=== PATIENT | female | born 1955 | race Caucasian/White ===

== ENCOUNTER → 2018-03-18 07:20 | Outpatient (CLI) | payer OTHER, SELFPAY ==
--- NOTE | 2018-03-18 07:20 | DT_ITS ---
This patient was seen during an EMR downtime March 18, 2018 - March 25, 2018. This patient may have a combination of paper and electronic documentation or all paper documentation. All documentation is viewable within the e-chart portion of [facility] for each patient visit.
--- NOTE | 2018-03-18 07:20 | BI_ITS ---
MAMMOGRAPHY - UNILATERAL SCREENING: LEFT BREAST REASON FOR EXAM: Female, 62 years old. Routine annual screening examination (unilateral). PERTINENT HISTORY: P/H AGE 43, MOTHER AGE 62 RT MASTECTOMY 2000, LT NEEDE BX 3 + YRS AGO TOMOXIFEN [id number] TECHNIQUE: Digital unilateral breast leisa (3D mammographic acquisition) in the CC and MLO projections. 2-D mediolateral oblique (MLO) and craniocaudad (CC) views of both breasts were obtained. CAD: Full Field Digital Mammography with Computer Added Detection was performed. COMPARISON: 03/19/17 and 03/31/2016 FINDINGS: Breast Composition: The breasts are heterogeneously dense, which may obscure small masses. There are no dominant masses or suspicious calcifications. No other significant abnormalities are identified. BI/UNILAT LT SCRN W/CAD IMPRESSION: Stable unilateral screening mammogram. Yearly follow-up mammogram recommended. (A) ASSESSMENT CATEGORY: BIRADS Category 2: Benign. A letter regarding these results will be sent to the patient by the facility within 30 days. Approximately 10% of breast cancers are not detected by mammography. A normal mammogram should not delay biopsy of a clinically suspicious abnormality. [id number] Electronically Signed: Elsa Hernández MD at 12:44 EDT Tel , Service support ,
== END ==
PROVIDERS: Family Provider Family Medicine; PCP Family Medicine; Visit Provider Surgery
DX: Z12.31 Encounter for screening mammogram for malignant neoplasm of breast (principal); Z85.3 Personal history of malignant neoplasm of breast
CPT/HCPCS: 77061; 77067; G0279

== ENCOUNTER → 2018-07-08 16:45 | Outpatient (CLI) | payer OTHER, SELFPAY ==
[2018-07-08 17:34] LABS: Absolute Lymphocyte Count 1.67 X10^3/ul (0.83-4.51); Absolute Neutrophil Count 2.1 X10^3/uL (2.0-7.7); Basophil# 0.01 X10^3/uL; Basophil% 0.2 % (0-1); Eosinophil# 0.05 X10^3/uL; Eosinophils% 1.2 % (0-5); Hematocrit 40.4 % (37-47); Hemoglobin 13.5 g/dl (12.0-15.0); Lymphocyte # 1.67 X10^3/ul (4.0); Lymphocyte % 40.1 % (19-41); Mean Corp Hgb Conc 33.4 g/gl (32-36); Mean Corpuscular Hgb 29.1 pg (27.0-32.0); Mean Corpuscular Volume 87.1 fL (81-99); Mean Platelet Vol. 9.7 fl (6.2-12.0); Monocyte# 0.35 X10^3/uL; Monocyte% 8.4 % (0-10); Neutrophil # 2.07 X10^3/uL (2.7-7.7); Neutrophil % 49.9 % (47-70); POSITIVE COUNT NO; POSITIVE DIFFERENTIAL NO; POSITIVE MORPHOLOGY NO; Platelet Count 187 K/mm3 (150-450); RBC Distribution Width CV 12.6 % (11.6-14.6); RBC Distribution Width SD 39.7 fl (35.1-43.9); Red Blood Count 4.64 M/mm3 (4.2-5.4); White Blood Count 4.2 K/mm3 (4.4-11.0)
[2018-07-08 17:48] LABS: BUN 18 mg/dL (7-18); BUN/Creat Ratio 17.6 RATIO (10-20); Calcium,Total 9.2 mg/dL (8.5-10.1); Chloride 101 mmol/L (98-107); Cholesterol 173 mg/dL (200); Creatinine, Serum 1.02 mg/dL (0.55-1.02); EST Glomerular Filtration Rate 59 mL/min (>60); Est Glom Filt Rate - Afr Amer 71 mL/min (>60); Glucose 86 mg/dL (74-106); Potassium 3.9 mmol/L (3.5-5.1); Sodium Level 139 mmol/L (136-145); Triglycerides 73 mg/dL
[2018-07-08 17:49] LABS: Anion Gap 8 (5-15); High Density Lipoprotein 82 mg/dL; Very Low Density Lipoprotein 15 mg/dL (5-40)
== END ==
PROVIDERS: Family Provider Family Medicine; PCP Family Medicine; Visit Provider Family Medicine
DX: I10 Essential (primary) hypertension (principal); K21.9 Gastro-esophageal reflux disease without esophagitis
CPT/HCPCS: 36415; 80048; 80061; 85025

== ENCOUNTER → 2019-01-04 08:01 | Outpatient (CLI) | payer OTHER, SELFPAY ==
[2019-01-04 09:20] LABS: Anion Gap 6 (5-15); BUN 24 mg/dL (7-18); BUN/Creat Ratio 27.2 RATIO (10-20); Calcium,Total 8.9 mg/dL (8.5-10.1); Chloride 106 mmol/L (98-107); Cholesterol 171 mg/dL (200); Creatinine, Serum 0.88 mg/dL (0.55-1.02); EST Glomerular Filtration Rate 69 mL/min (>60); Est Glom Filt Rate - Afr Amer 84 mL/min (>60); Glucose 90 mg/dL (74-106); High Density Lipoprotein 82 mg/dL; Potassium 4.2 mmol/L (3.5-5.1); Sodium Level 143 mmol/L (136-145); Triglycerides 57 mg/dL; Very Low Density Lipoprotein 11 mg/dL (5-40)
== END ==
PROVIDERS: Family Provider Family Medicine; PCP Family Medicine; Referring Provider Nurse Practitioner Adult Health; Visit Provider Nurse Practitioner Adult Health
DX: I10 Essential (primary) hypertension (principal); E78.5 Hyperlipidemia, unspecified
CPT/HCPCS: 36415; 80048; 80061

== ENCOUNTER → 2019-03-15 | Outpatient (CLI) | payer OTHER, SELFPAY ==
--- NOTE | 2019-03-15 07:32 | BI_ITS ---
MAMMOGRAPHY - BILATERAL SCREENING REASON FOR EXAM: Female, 63 years old. Routine annual screening examination. PERTINENT HISTORY: Personal history of breast cancer. Prior right mastectomy. Mother with breast cancer. Remote left stereotactic breast biopsy. TECHNIQUE: Digital bilateral breast cristina (3D mammographic acquisition) in the CC and MLO projections. 2-D mediolateral oblique (MLO) and craniocaudad (CC) views of both breasts were obtained. CAD: Full Field Digital Mammography with Computer Added Detection was performed. COMPARISON: Comparison is made with prior study dated March 18, 2018 and March 19, 2017. FINDINGS: Breast Composition: The breasts are heterogeneously dense, which may obscure small masses. There are no dominant masses or suspicious calcifications. A tissue clip marker is seen in the deep axillary region of the left breast. No other significant abnormalities are identified. There has been no significant change since the prior study. BI/SCREEN MAMM (CAD) W/CRISTINA UNI L IMPRESSION: Stable bilateral screening mammogram. Yearly follow-up mammogram recommended. (A) ASSESSMENT CATEGORY: BIRADS Category 2: Benign. A letter regarding these results will be sent to the patient by the facility within 30 days. Approximately 10% of breast cancers are not detected by mammography. A normal mammogram should not delay biopsy of a clinically suspicious abnormality. [id number] Electronically Signed: Petr Westbrook, at 9:20 EDT , Service support ,
== END | disposition home or self-care (01) ==
LOC: OPBI 07:30
PROVIDERS: Family Provider Family Medicine; PCP Family Medicine; Referring Provider Surgery; Visit Provider Surgery
DX: Z12.31 Encounter for screening mammogram for malignant neoplasm of breast (principal)
CPT/HCPCS: 77061; 77067; G0279

== ENCOUNTER → 2019-07-07 | Outpatient (CLI) | payer OTHER, SELFPAY ==
[2019-03-21 08:03] VITALS: BMI 19.3
[2019-07-07 18:17] LABS: Anion Gap 4 (5-15); BUN 22 mg/dL (7-18); BUN/Creat Ratio 22.8 RATIO (10-20); Chloride 102 mmol/L (98-107); Creatinine, Serum 0.96 mg/dL (0.55-1.02); EST Glomerular Filtration Rate 62 mL/min (>60); Est Glom Filt Rate - Afr Amer 75 mL/min (>60); Glucose 88 mg/dL (74-106); Potassium 3.5 mmol/L (3.5-5.1); Sodium Level 137 mmol/L (136-145)
== END | disposition home or self-care (01) ==
LOC: MFPLAB 16:28
PROVIDERS: Family Provider Family Medicine; PCP Family Medicine; Visit Provider Family Medicine
DX: I10 Essential (primary) hypertension (principal)
CPT/HCPCS: 36415; 80048

== ENCOUNTER → 2019-09-25 16:11 | Outpatient (CLI) | payer OTHER, SELFPAY ==
[2019-03-21 08:03] VITALS: BMI 19.3
--- NOTE | 2019-09-25 16:40 | RAD_ITS ---
STUDY: X-RAY CHEST REASON FOR EXAM: Female, 64 years old. Pre-op workup TECHNIQUE: PA and lateral views of the chest. COMPARISON: None. FINDINGS: The lungs are clear but hyper expanded. There is pectus excavatum. There is no demonstrated pleural abnormality. Normal size heart. Normal mediastinum and matthew. Normal visualized pulmonary arteries. There is atherosclerotic calcification of the aortic arch with tortuosity. Normal visualized thoracic spine. Normal visualized ribs, clavicles, and shoulders. There is no demonstrated abnormality of the visualized soft tissue structures of the upper abdomen. RAD/Chest PA and Lateral IMPRESSION: No airspace consolidation or pleural effusion. Electronically Signed: Rodrigo Millan MD ([place]) at 9:05 EST , Service support ,
[2019-09-25 17:10] LABS: Absolute Lymphocyte Count 1.63 X10^3/uL (0.83-4.51); Absolute Neutrophil Count 2.3 X10^3/uL (2.0-7.7); Basophil# 0.02 X10^3/uL; Basophil% 0.4 % (0-1); Eosinophil# 0.11 X10^3/uL; Eosinophils% 2.4 % (0-5); Hematocrit 43.4 % (37-47); Hemoglobin 14.1 g/dL (12.0-15.0); Lymphocyte # 1.63 X10^3/ul (4.0); Lymphocyte % 35.7 % (19-41); Mean Corp Hgb Conc 32.5 g/dL (32-36); Mean Corpuscular Hgb 28.6 pg (27.0-32.0); Mean Platelet Vol. 9.5 fl (6.2-12.0); Monocyte# 0.46 X10^3/uL; Monocyte% 10.1 % (0-10); NRBC Flagged by Analyzer 0 % (0-5); Neutrophil # 2.33 X10^3/uL (2.7-7.7); Neutrophil % 51.2 % (47-70); Platelet Count 214 K/mm3 (150-450); RBC Distribution Width CV 12.6 % (11.6-14.6); RBC Distribution Width SD 40.7 fl (35.1-43.9); Red Blood Count 4.93 M/mm3 (4.2-5.4); White Blood Count 4.6 K/mm3 (4.4-11.0)
[2019-09-25 17:31] LABS: Anion Gap 5 (5-15); BUN 19 mg/dL (7-18); BUN/Creat Ratio 18.8 RATIO (10-20); Calcium,Total 9.2 mg/dL (8.5-10.1); Chloride 104 mmol/L (98-107); Creatinine, Serum 1.01 mg/dL (0.55-1.02); EST Glomerular Filtration Rate 59 mL/min (>60); Est Glom Filt Rate - Afr Amer 71 mL/min (>60); Glucose 90 mg/dL (74-106); Potassium 4.2 mmol/L (3.5-5.1); Sodium Level 140 mmol/L (136-145)
== END ==
PROVIDERS: Family Provider Family Medicine; PCP Family Medicine; Referring Provider Physician Assistant; Visit Provider Physician Assistant
DX: Z01.818 Encounter for other preprocedural examination (principal)
CPT/HCPCS: 36415; 71046; 80048; 85025

== ENCOUNTER → 2019-10-03 16:24 | Outpatient (CLI) | payer OTHER, SELFPAY ==
[2019-03-21 08:03] VITALS: BMI 19.3
--- NOTE | 2019-10-03 16:31 | EKG12_ITS ---
Test Reason : PRE OP Blood Pressure : / mmHG Vent. Rate : 092 BPM Atrial Rate : 092 BPM P-R Int : 156 ms QRS Dur : 074 ms QT Int : 348 ms P-R-T Axes : 075 -08 065 degrees QTc Int : 430 ms Normal sinus rhythm Possible Left atrial enlargement Borderline ECG When compared with ECG of 31-OCT-2016 17:28, No significant change was found Confirmed by SUSANA MARTIN, HAWK ([id number]), department editor KARUNA SCHMIDT ([id number]) on 10/06/2019 1:08:33 PM Referred By: Wolf Jay Confirmed By:HAWK MEZA MD
== END ==
LOC: LAB 16:25 → CVS 16:30
PROVIDERS: Family Provider Family Medicine; PCP Family Medicine; Referring Provider Physician Assistant; Visit Provider Physician Assistant
DX: Z01.818 Encounter for other preprocedural examination (principal)
CPT/HCPCS: 93005

== ENCOUNTER → 2020-03-11 | Outpatient (CLI) | payer OTHER, SELFPAY ==
[2019-03-21 08:03] VITALS: BMI 19.3
--- NOTE | 2020-03-11 07:26 | BI_ITS ---
MAMMOGRAPHY - UNILATERAL SCREENING: LEFT BREAST REASON FOR EXAM: Female, 64 years old. Routine annual screening examination (unilateral). PERTINENT HISTORY: Personal history of breast cancer. Prior right mastectomy. Mother with breast cancer. TECHNIQUE: Digital unilateral breast cristina (3D mammographic acquisition) in the CC and MLO projections. 2-D mediolateral oblique (MLO) and craniocaudad (CC) views of both breasts were obtained. CAD: Full Field Digital Mammography with Computer Added Detection was performed. COMPARISON: Comparison is made with prior examination dated March 15, 2019 and March 18, 2018. FINDINGS: Breast Composition: The breasts are heterogeneously dense, which may obscure small masses. There are no dominant masses or suspicious calcifications. There is a 4.7 mm x 5.1 mm well-defined nodule in the axillary region of the left breast. Correlation with ultrasound is recommended for further evaluation. A tissue clip marker is once again seen in the deep axillary region of the left breast. No other significant abnormalities are identified. BI/SCREEN MAMM (CAD) W/CRISTINA UNI L IMPRESSION: 4.7 mm x 5.1 mm well-defined nodule in the axillary region of the left breast as described. Correlation with ultrasound is recommended. ASSESSMENT CATEGORY: BIRADS Category 0: Incomplete. Need additional imaging evaluation. A letter regarding these results will be sent to the patient by the facility within 30 days. Approximately 10% of breast cancers are not detected by mammography. A normal mammogram should not delay biopsy of a clinically suspicious abnormality. [id number] Electronically Signed: Petr Westbrook, at 8:23 EDT , Service support ,
--- NOTE | 2020-03-11 13:57 | US_ITS ---
STUDY: ULTRASOUND BREAST - LEFT REASON FOR EXAM: Female, 64 years old. Left axillary nodule. TECHNIQUE: Axial and longitudinal images of the LEFT breast were performed with a high resolution ultrasound transducer. # OF IMAGES: 17 COMPARISON: Comparison is made with prior mammogram done earlier in the day. FINDINGS: LEFT Breast: 2 benign-appearing lymph nodes are seen in the axillary region of the left breast. The larger lymph node measures 1.2 cm x 0.8 cm x 0.6 cm. US/Breast Limited Unilateral IMPRESSION: 2 benign-appearing lymph nodes are seen in the axillary region of the left breast. ASSESSMENT CATEGORY: BIRADS Category 2: Benign. A letter regarding these results will be sent to the patient by the facility within 30 days. Electronically Signed: Petr Westbrook, at 15:04 EDT , Service support ,
== END | disposition home or self-care (01) ==
PROVIDERS: PCP Family Medicine; Referring Provider Surgery; Visit Provider Surgery
DX: N63.20 Unspecified lump in the left breast, unspecified quadrant (principal); Z12.31 Encounter for screening mammogram for malignant neoplasm of breast
CPT/HCPCS: 76642; 77063; 77067

== ENCOUNTER → 2020-03-12 | Outpatient (CLI) | payer OTHER, SELFPAY ==
[2019-03-21 08:03] VITALS: BMI 19.3
[2020-03-12 15:36] LABS: AST(SGOT) 33 U/L (15-37); Alanine Aminotransfer ALT/SGPT 41 U/L (13-56); Anion Gap 6 (5-15); BUN 26 mg/dL (7-18); BUN/Creat Ratio 24.8 RATIO (10-20); Calcium,Total 9.1 mg/dL (8.5-10.1); Chloride 105 mmol/L (98-107); Cholesterol 179 mg/dL (200); Creatinine, Serum 1.05 mg/dL (0.55-1.02); EST Glomerular Filtration Rate 56 mL/min (>60); Est Glom Filt Rate - Afr Amer 68 mL/min (>60); Glucose 92 mg/dL (74-106); High Density Lipoprotein 93 mg/dL; Sodium Level 140 mmol/L (136-145); Triglycerides 60 mg/dL; Very Low Density Lipoprotein 12 mg/dL (5-40)
== END | disposition home or self-care (01) ==
LOC: MFPLAB 14:22
PROVIDERS: PCP Family Medicine; Referring Provider Family Medicine; Visit Provider Family Medicine
DX: I10 Essential (primary) hypertension (principal); E78.5 Hyperlipidemia, unspecified
CPT/HCPCS: 36415; 80048; 80061; 84450; 84460

== ENCOUNTER → 2020-03-17 | Outpatient (CLI) | payer OTHER, SELFPAY ==
[2019-03-21 08:03] VITALS: BMI 19.3
[2020-03-19 13:03] LABS: HPV APTIMA, High Risk Negative (Negative)
== END | disposition home or self-care (01) ==
LOC: LABSPEC 13:24
PROVIDERS: PCP Family Medicine; Visit Provider Obstetrics & Gynecology
DX: Z12.4 Encounter for screening for malignant neoplasm of cervix (principal)
CPT/HCPCS: 87624; 88175; G0145

== ENCOUNTER → 2020-09-07 16:04 | Outpatient (CLI) | payer OTHER, SELFPAY ==
[2020-03-19 07:57] VITALS: BMI 19.3
[2020-09-07 17:50] LABS: Absolute Lymphocyte Count 1.62 X10^3/uL (0.83-4.51); Absolute Neutrophil Count 2.5 X10^3/uL (2.0-7.7); Basophil# 0.02 X10^3/uL; Basophil% 0.4 % (0-1); Eosinophil# 0.18 X10^3/uL; Eosinophils% 3.8 % (0-5); Hematocrit 43.8 % (37-47); Lymphocyte # 1.62 X10^3/ul (4.0); Mean Corpuscular Hgb 28.6 pg (27.0-32.0); Mean Corpuscular Volume 89.4 fL (81-99); Mean Platelet Vol. 9.6 fl (6.2-12.0); Monocyte# 0.48 X10^3/uL; Monocyte% 10.1 % (0-10); NRBC Flagged by Analyzer 0 % (0-5); Neutrophil # 2.46 X10^3/uL (2.7-7.7); Neutrophil % 51.5 % (47-70); Platelet Count 218 K/mm3 (150-450); RBC Distribution Width CV 13.2 % (11.6-14.6); RBC Distribution Width SD 43.8 fl (35.1-43.9); White Blood Count 4.8 K/mm3 (4.4-11.0)
[2020-09-07 18:22] LABS: Anion Gap 6 (5-15); BUN 24 mg/dL (7-18); BUN/Creat Ratio 25.8 RATIO (10-20); Calcium,Total 9.4 mg/dL (8.5-10.1); Chloride 105 mmol/L (98-107); Creatinine, Serum 0.93 mg/dL (0.55-1.02); EST Glomerular Filtration Rate 65 mL/min (>60); Est Glom Filt Rate - Afr Amer 78 mL/min (>60); Glucose 83 mg/dL (74-106); Potassium 3.8 mmol/L (3.5-5.1); Sodium Level 140 mmol/L (136-145)
== END ==
PROVIDERS: PCP Family Medicine; Referring Provider Family Medicine; Visit Provider Family Medicine
DX: I10 Essential (primary) hypertension (principal); C50.919 Malignant neoplasm of unspecified site of unspecified female breast
CPT/HCPCS: 36415; 80048; 85025

== ENCOUNTER → 2021-03-17 08:58 | Outpatient (CLI) | payer OTHER, SELFPAY ==
[2020-03-19 07:57] VITALS: BMI 19.3
[2021-03-17 10:44] LABS: AST(SGOT) 29 U/L (15-37); Alanine Aminotransfer ALT/SGPT 37 U/L (13-56); Anion Gap 5 (5-15); BUN 23 mg/dL (7-18); BUN/Creat Ratio 23.4 RATIO (10-20); Calcium,Total 9.1 mg/dL (8.5-10.1); Chloride 105 mmol/L (98-107); Cholesterol 172 mg/dL (200); Creatinine, Serum 0.98 mg/dL (0.55-1.02); EST Glomerular Filtration Rate 61 mL/min (>60); Est Glom Filt Rate - Afr Amer 73 mL/min (>60); Glucose 100 mg/dL (74-106); High Density Lipoprotein 86 mg/dL; Potassium 4.3 mmol/L (3.5-5.1); Sodium Level 140 mmol/L (136-145); Triglycerides 50 mg/dL; Very Low Density Lipoprotein 10 mg/dL (5-40)
== END ==
PROVIDERS: PCP Family Medicine; Referring Provider Family Medicine; Visit Provider Family Medicine
DX: I10 Essential (primary) hypertension (principal); E78.5 Hyperlipidemia, unspecified
CPT/HCPCS: 36415; 80048; 80061; 84450; 84460

== ENCOUNTER 2022-03-01 16:11 | Outpatient (CLI) | payer OTHER, SELFPAY ==
[2022-03-01 18:51] LABS: Anion Gap 5 (5-15); BUN 25 mg/dL (7-18); BUN/Creat Ratio 25.4 RATIO (10-20); Calcium,Total 9.4 mg/dL (8.5-10.1); Chloride 103 mmol/L (98-107); Creatinine, Serum 0.98 mg/dL (0.55-1.02); EST Glomerular Filtration Rate 60 mL/min (>60); Est Glom Filt Rate - Afr Amer 73 mL/min (>60); Glucose 93 mg/dL (74-106); Potassium 3.9 mmol/L (3.5-5.1); Sodium Level 139 mmol/L (136-145)
== END 2022-03-01 23:59 | disposition home or self-care (01) ==
LOC: MFPLAB 16:14
PROVIDERS: PCP Family Medicine; Referring Provider Family Medicine; Visit Provider Family Medicine
DX: I10 Essential (primary) hypertension (principal); E78.5 Hyperlipidemia, unspecified
CPT/HCPCS: 36415; 80048

== ENCOUNTER 2022-05-13 18:44 | Emergency (ER) | payer OTHER, SELFPAY ==
[2022-05-13 18:46] VITALS: BP 190/111; PULSE 79; RESP 17; TEMP 36.8; O2SAT 98; BMI 19.5
[2022-05-13 19:01] VITALS: BP 178/113; PULSE 74; RESP 18; O2SAT 99
--- NOTE | 2022-05-13 19:08 | EDS_ITS ---
HPI History of Present Illness Chief Complaint: Laceration Informant: patient Narrative Narrative: Left hand female presents for evaluation laceration dorsal left hand. Prior to arrival. Cutting cabbage in the garden when she excellently stabbed herself. No paresthesia or loss of function. She takes baby aspirin. Unable to get the bleeding stopped therefore came here. Tetanus was last year. No other injuries. Tetanus Immunization: <5 years [facility] Medical History (Updated 05/13/22 @ 21:[address] Tyrone Long DO) Depression GERD (gastroesophageal reflux disease) High cholesterol HTN (hypertension) Home Medications aspirin 81 mg tablet,delayed release 81 mg PO DAILY 03/21/19 [History Last Taken Unknown] atorvastatin 20 mg tablet 20 mg PO DAILY 03/21/19 [History Last Taken Unknown] bupropion HCl 150 mg 24 hr tablet, extended release 300 mg PO QAM 03/21/19 [History Last Taken Unknown] hyoscyamine sulfate 0.375 mg tablet,extended release,12 hr 0.375 mg PO Q12H 03/21/19 [History Last Taken Unknown] lisinopril 10 mg-hydrochlorothiazide 12.5 mg tablet 1 tab PO DAILY 03/21/19 [History Last Taken Unknown] mirtazapine 30 mg tablet 30 mg PO DAILY 03/21/19 [History Last Taken Unknown] omeprazole 20 mg capsule,delayed release 20 mg PO DAILY 03/21/19 [History Last Taken Unknown] valacyclovir 500 mg tablet 500 mg PO DAILY 05/13/22 [History Last Taken Unknown] Allergy/AdvReac Type Severity Reaction Status Date / Time No Known Allergies Allergy Verified 05/13/22 19:08 Family History Mother Heart disease Hypertension CAD (coronary artery disease) Father Hypertension Surgical History S/P mastectomy Status post hip replacement Social History Smoking Status: Never smoker alcohol intake: never ROS ROS ED Constitutional Constitutional ED: Denies chills, fever(s) or sweats Eyes Eyes: Denies change in vision ENT ENT ED: Denies dysphagia or sore throat Cardiovascular Cardiovascular: Denies chest pain, leg edema, palpitations or racing heartbeat Respiratory/Chest Respiratory/Chest: Denies cough, dyspnea or dyspnea on exertion Gastrointestinal Gastrointestinal: Denies abdominal pain, diarrhea, nausea or vomiting Genitourinary Genitourinary ED: Denies dysuria, hematuria or urinary frequency Musculoskeletal Musculoskeletal: Denies back pain, extremity pain or neck pain Integumentary Reports wounds; Denies rash Neurologic Neurologic: Denies headache(s), paresthesias or weakness EXAM Physical Exam Const Vital Signs: 05/13/22 18:46 05/13/22 19:01 Temperature 98.3 F Temperature Source Temporal Pulse Rate 79 74 Respiratory Rate 17 18 Blood Pressure 190/111 H 178/113 H Blood Pressure Mean 137 134 Pulse Ox 98 99 Oxygen Delivery Method Room Air Room Air Positive well nourished and well developed General Appearance ED: well developed and NAD HEENT Reports moist mucous membranes normocephalic and atraumatic Eyes PERRL, EOMs intact bilaterally and conjunctivae normal General Eye ED: Yes normal appearance of both eyes Neck no lymphadenopathy and supple General: Negative for tenderness Chest Wall Chest: Negative for tenderness Resp normal respiratory effort and normal air movement Effort and Inspection: symmetric chest movement; Negative for respiratory distress Cardio regular rate, regular rhythm and no murmurs Peripheral Pulses: pulses 2+ throughout GI normal to inspection, nondistended, normoactive bowel sounds and non-tender Palpation: Negative for guarding or rebound tenderness present Back/Spine no CVA tenderness and no thoracic nor lumbar tenderness Extremity normal to inspection General Extremety ED: Negative for edema or tenderness General Extremity: Negative for edema Neuro oriented x3 and no sensory deficits noted Sensorium / Orientation: awake and alert Skin Skin Narrative: Dorsal left hand: 1 cm laceration first webspace with hematoma, there was clot of blood, there is no active bleeding. Full range of motion of the digits with extensor mechanism intact to both the thumb and the index. Sensation intact distally. MDM MDM MDM Narrative Medical decision making narrative: Laceration dorsal hand first webspace all tendons are intact. There was hemostasis on my evaluation. However discussed repair for which she agreed. Sutures placed with good hemostasis. Dressing. Wound care discussed. Sutures removed in 10 days. Blood pressure elevated on arrival improved without intervention. History of hypertension. Likely situational. Patient asymptomatic. All questions were answered. Procedure note: Verbal consent. Laceration repair. Normal sterile conditions. 2 cc lidocaine 1% used for local analgesia. Copiously flushed with normal saline. Total of 2, 4-0 nylon simple interrupted sutures placed with good approximation. Bacitracin dressing placed by myself. Patient Toller procedure well. Discharge Plan Triage Chief Complaint: Laceration ED Provider: Tyrone Long Dx/Rx/DC Orders Clinical Impression: Laceration of hand, left, Injury of hand, left, Elevated blood pressure reading in office with diagnosis of hypertension Instructions: ED Laceration, Hand: All Closures Prescriptions: No Action atorvastatin 20 mg tablet 20 mg PO DAILY bupropion HCl 150 mg tablet extended release 24 hr 300 mg PO QAM mirtazapine 30 mg tablet 30 mg PO DAILY omeprazole 20 mg capsule,delayed release(DR/EC) 20 mg PO DAILY lisinopril-hydrochlorothiazide 10-12.5 mg tablet 1 tab PO DAILY hyoscyamine sulfate 0.375 mg tablet extended release 12 hr 0.375 mg PO Q12H aspirin 81 mg tablet,delayed release (DR/EC) 81 mg PO DAILY valacyclovir 500 mg tablet 500 mg PO DAILY Primary Care Provider: Berta Plaza Referrals: Berta Plaza MD [Primary Care Provider] - 10 Day for suture removal Activity Restrictions/Additional Instructions: 2 sutures placed over the wound. Wound care as discussed. Follow-up with your doctor for suture removal. Disposition Disposition: Home, Self Care Discharge Date/Time: 05/13/22 19:57
[2022-05-13] MEDS: Lidocaine 1% (20 ml mdv) 20 ML Vial INFILT (19:12)
[2022-05-13 19:55] VITALS: BP 146/80; PULSE 78; RESP 17; O2SAT 98
== END 2022-05-13 19:57 | disposition home or self-care (01) ==
PROVIDERS: Emergency Provider Emergency Medicine; PCP Family Medicine; Visit Provider Emergency Medicine
DX: S61.412A Laceration without foreign body of left hand, initial encounter (principal); I10 Essential (primary) hypertension; E78.00 Pure hypercholesterolemia, unspecified; S69.92XA Unspecified injury of left wrist, hand and finger(s), initial encounter; F32.A Depression, unspecified; Z79.82 Long term (current) use of aspirin; Z79.899 Other long term (current) drug therapy; W26.8XXA Contact with other sharp object(s), not elsewhere classified, initial encounter; Y93.H2 Activity, gardening and landscaping
CPT/HCPCS: 12001; 99283

== ENCOUNTER → 2023-05-04 | Outpatient (CLI) | payer OTHER, SELFPAY ==
[2023-05-04 11:30] LABS: AST(SGOT) 24 U/L (15-37); Alanine Aminotransfer ALT/SGPT 32 U/L (13-56); Anion Gap 5 (5-15); BUN 23 mg/dL (7-18); BUN/Creat Ratio 25.1 RATIO (10-20); Calcium,Total 9.6 mg/dL (8.5-10.1); Chloride 107 mmol/L (98-107); Cholesterol 199 mg/dL (200); Creatinine, Serum 0.92 mg/dL (0.55-1.02); EST Glomerular Filtration Rate 65 mL/min (>60); Est Glom Filt Rate - Afr Amer 79 mL/min (>60); Glucose 95 mg/dL (74-106); High Density Lipoprotein 81 mg/dL; Potassium 4.1 mmol/L (3.5-5.1); Sodium Level 140 mmol/L (136-145); Triglycerides 55 mg/dL; Very Low Density Lipoprotein 11 mg/dL (5-40)
== END | disposition home or self-care (01) ==
LOC: MFPLAB 08:38
PROVIDERS: PCP Family Medicine; Visit Provider Family Medicine
DX: E78.5 Hyperlipidemia, unspecified (principal); I10 Essential (primary) hypertension
CPT/HCPCS: 36415; 80048; 80061; 84450; 84460

== ENCOUNTER → 2023-05-10 | Outpatient (CLI) | payer OTHER, SELFPAY ==
--- NOTE | 2023-05-10 08:24 | BD_ITS ---
STUDY: DUAL ENERGY X-RAY ABSORPTIOMETRY / DXA REASON FOR EXAM: Female, 67 years old. Z78.0 TECHNIQUE: Bone Mineral Density (BMD) measurements of lumbar spine and right forearm were obtained. COMPARISON: None. FINDINGS: Lumbar Spine (L1-L4): g/cm2 (0.910) / T-score (-1.2) / Z-score (0.6) Findings are suggestive of osteopenia with a low fracture risk. Right Forearm: g/cm2 (0.438) / T-score (-2.6) / Z-score (-1.0) BD/Dexa Bone Density Study IMPRESSION: The patient is considered osteoporotic as outlined below according to World Leonard Organization (WHO) criteria with a high fracture risk. Reference Information: The T-score is the number of standard deviations above or below the standard which is normal for young adults at their peak bone mineral density. The World Health Organization (WHO) interprets the T-scores as follows: Above -1 Normal bone density Between -1 and -2.5 Osteopenia Equal to / or below -2.5 Osteoporosis As a practical clinical guideline, osteopenia may be graded as follows: Mild -1 through -1.5 Moderate -1.6 through -2.0 Severe -2.1 through -2.4 The Z-score is the number of standard deviations above or below age-matched controls. A Z-score of less than -1.5 would be considered abnormal. References: 1. NIH Osteoporosis and Related Bone Diseases www osteo.org 2. International Society for Clinical Densitometry www iscd.org 3. National Osteoporosis Foundation www nof.org Electronically Signed: Petr Westbrook MD at 15:39 EDT ,
== END | disposition home or self-care (01) ==
LOC: OPBD 08:19
PROVIDERS: PCP Family Medicine; Referring Provider Nurse Practitioner Women's Health; Visit Provider Nurse Practitioner Women's Health
DX: Z78.0 Asymptomatic menopausal state (principal)
CPT/HCPCS: 77080

== ENCOUNTER → 2024-03-18 | Outpatient (CLI) | payer OTHER, SELFPAY ==
--- NOTE | 2024-03-18 11:27 | RAD_ITS ---
INDICATION: pain EXAMINATION/TECHNIQUE: X-RAY - RIGHT XR Tibia/Fibula 2 Views 2 VIEWS COMPARISON: No relevant prior comparison study available FINDINGS: SOFT TISSUES: No soft tissue swelling or gas. No radiopaque foreign body. BONES/JOINTS: No acute fracture or subluxation.. Normal alignment. Preservation of the joint space.. No sclerotic or destructive changes observed. RAD/Tibia & Fibula 2 Views IMPRESSION: 1. No evidence fracture, malalignment or focal bony or joint space abnormality. Electronically Signed: Reji Joseph MD at 19:01 EDT ,
--- NOTE | 2024-03-18 11:27 | RAD_ITS ---
INDICATION: pain RIGHT posterior pain. No history of injury. EXAMINATION/TECHNIQUE: X-RAY - XR Hip Unilateral with Pelvis when performed; 2-3 Views COMPARISON: No relevant prior comparison study available FINDINGS: PELVIC BONES: 1. There is normal bony alignment. Bilateral hip arthroplasties are present. There does appear to be mild deformity along the inferior aspect of the RIGHT arthroplasty at the acetabular component. This appears chronic, however may represent remodeling of the securing bone. The femoral complement in the RIGHT hip arthroplasty is well seated and shows no evidence fracture or loosening. 2. Pelvic ring and its visualized sacrum and sacroiliac joints have normal appearance. 3. Note that overlapping bowel shadows may however obscure fine detail. Sacroiliac joints are unremarkable. No widening of the pubic symphysis. HIPS: Bilateral hip arthroplasties as detailed above. No acute fracture noted SOFT TISSUES: No soft tissue swelling or gas. RAD/HIP, UNI W/ Pelvis 2-3 Views IMPRESSION: 1. Bilateral hip arthroplasties. There does appear to be remodeling of bone along the inferior aspect of the RIGHT arthroplasty at the acetabular component. The femoral component is well positioned. 2. No acute fractures noted. 3. Pelvic ring is intact. 4. Incidental note of mild lumbar spondylosis. Electronically Signed: Reji Joseph MD at 18:58 EDT ,
== END | disposition home or self-care (01) ==
LOC: MTRAD 11:27
PROVIDERS: PCP Family Medicine; Referring Provider Family Medicine; Visit Provider Family Medicine
DX: M89.8X6 Other specified disorders of bone, lower leg (principal); M25.559 Pain in unspecified hip
CPT/HCPCS: 73502; 73590

== ENCOUNTER 2024-05-08 08:00 | Outpatient (RCR) | payer OTHER, SELFPAY ==
--- NOTE | 2024-03-30 08:22 | HP.PTEVAL_ITS ---
Patient's Visit Information Visit Information Visit Information: HEIDY GILES is a 68 year old F referred to Physical Therapy by Dr. Madan Samuel MD with a diagnosis of R lumbar radiculopathy. Date of Evaluation: 03/27/24 Physical Therapist: Nathan Diaz DPT Visit Plan Frequency: 2x /Week Duration: 6 Weeks Plan: Pt. to start with light extension progression to centralize symptoms. Pt. is to have MRI next week and see spinal surgeon as well. If not having + response with extension consider modalities or neutral spine activities. Subjective Subjective: Pt. is here today for her initial evaluation with diagnosis of R hip pain, R lumbar radiculopathy. Pt. reports around day she started having some gluteal and R anterior jon pain. Pt. reports no specific mech of injury. She denies N/T in either LE. She is sleeping in a reclining chair secondary to pain. AMs are worse until moving around. Pt. just started Gabapentin, but re ports no much change as of yet, only been taking for about 1 week. Pain worse with standing and walking, and in AMs. Decreases pain with sitting, but not always. Pt. reports no LE weakness. Pain in R SI region and jon seem to correlate. Pt. has has Bilateral hip arthroplasties, recent Xrays show good alignment without signs of loosening. She did have a back xray as well. Some degenerative changes noted as well. Pt. does report that bending fwrd seems to be helpful. Pt. does have a MRI scheduled next week. Seeing spinal surgeon next week as well. She is also to have a nerve conduction test, but not until April. 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 Pt. hopeful to reduce symptoms in order to get back to all work and recreational activities without limitations. Pain R hip: Pain Intensity (Out of 10): 4 Pain Intensity Range: 0 and 8 Comment: posterior aspect of gluteal region R jon region: Pain Intensity (Out of 10): 4 Pain Intensity Range: 0 Comment: anterior Objective Objective: POSTURE: Pt. has slight flexed posture. Pt. has equal wt. shift between BLEs. PALPATION: Pt. has tenderness at R PSIS, mild tenderness at R mid glute region. Not much pain with spring testing of lumbar spine, but hypomobility noted throughout. NEURO: normal sensation in BLEs. Pt. has slight reduced reflexes on R LE compared to LLE. Pt. is able to rise on heels and toes without issues. ROM: LUMBAR SPINE: Flexion nil loss NE, ext mod loss increase NW, SB min loss bilat increase NW to R side, rotation min loss bilat increase NW to R side. B hips: good ROM with mild increase in symptoms with R hip flexion MMT: Pt. has good strength throughout BLEs. Pt. no myotomal weakness noted. GAIT: Pt. has pretty guarded posture with gait, minimal arm swing noted. Balance/Special Test Scores Oswestry Low Back Score: 24 Goals Goal 1:: LTG: Pt. to be I with HEP. Goal Time Frame: 4-6 Weeks Goal 2:: STG: Pt. to be able to sit without increase in R sided lumbar spine symptoms. Goal Time Frame: 2-4 Weeks Goal 3:: LTG: Pt. to have full lumbar ROM without increase in symptoms. Goal Time Frame: 4-6 Weeks Goal 4:: LTG: Pt. to complete all gardening activities without increase in l umbar spine symptoms. Goal Time Frame: 4-6 Weeks Goal 5:: STG: Pt. to report no distal RLE symptoms with all activities. Goal Time Frame: 2 Weeks Rehabilitation Potential Physical Therapy Diagnosis: Pt. has signs and symptoms consistent with R lumbar radiculopathy. Pt. had a mild + response with extension, but not consistent. Flexion movements were worse. No peripheralization of symptoms noted. Pt. would benefit from PT to working lumbar ROM and reducing symptoms in order to get back to all recreational activities without limitations. Rehabilitation Potential: Good Anticipated Interventions Patient/Client Instruction: Educate patient on: Condition, Plan of Care, Risk Factors and Benefits of Fitness Program For the Purpose of:: To foster healthy habits, To improve decision making, To facilitate caregiver knowledge, To improve self management, To prevent re-injury and To improve ability to perform tasks related to life management Therapeutic Exercise to Include: Strength training, Power training, Flexibilty training, Dynamic Lumbar Stabilization and Lisa Exercises For the Purpose of:: To decrease pain, To increase ROM, To improve nutrient delivery to tissue, To increase oxygenation perfusion, To improve muscle performance and motor function, To improve ability to perform ADL's, To increase tolerance to activity/condition/position and To improve performance and independence with ADL's Cryotherapy (ice pack, ice massage): Yes Thermo therapy (hot pack): Yes Ultrasound (thermal/non thermal): Yes For the Purpose of:: To decrease pain, To decrease swelling/inflammation, To increase ROM, To improve nutrient delivery to tissue and To increase oxygenation perfusion Text: Thank you for the opportunity to evaluate your patient. For Medicare and Medicare HMO plans, please review the plan of care and approve it. It will need to be FAXED BACK to us at [phone] for Medicare purposes. For Medicare only, by signing this I certify the plan of care. Please let me know if there are questions or concerns regarding this plan of care. Physician Signature: Date:
== END 2024-05-08 19:00 | disposition home or self-care (01) ==
LOC: PT 08:00
PROVIDERS: PCP Family Medicine; Referring Provider Orthopaedic Surgery Sports Medicine; Visit Provider Orthopaedic Surgery Sports Medicine
DX: M25.551 Pain in right hip (principal); M54.16 Radiculopathy, lumbar region
CPT/HCPCS: 97110; 97161

== ENCOUNTER → 2024-05-09 | Outpatient (CLI) | payer OTHER, SELFPAY ==
[2024-05-09 12:36] LABS: AST(SGOT) 40 U/L (15-37); Alanine Aminotransfer ALT/SGPT 48 U/L (13-56); Anion Gap 5 (5-15); BUN 24 mg/dL (7-18); BUN/Creat Ratio 24.9 RATIO (10-20); Calcium,Total 9.5 mg/dL (8.5-10.1); Chloride 107 mmol/L (98-107); Cholesterol 176 mg/dL (200); Creatinine, Serum 0.96 mg/dL (0.55-1.02); EST Glomerular Filtration Rate 61 mL/min (>60); Est Glom Filt Rate - Afr Amer 74 mL/min (>60); Glucose 98 mg/dL (74-106); High Density Lipoprotein 90 mg/dL; Potassium 4.2 mmol/L (3.5-5.1); Sodium Level 140 mmol/L (136-145); Triglycerides 56 mg/dL; Very Low Density Lipoprotein 11 mg/dL (5-40)
== END | disposition home or self-care (01) ==
LOC: MFPLAB 10:38
PROVIDERS: PCP Family Medicine; Visit Provider Family Medicine
DX: E78.5 Hyperlipidemia, unspecified (principal); I10 Essential (primary) hypertension
CPT/HCPCS: 36415; 80048; 80061; 84450; 84460

== ENCOUNTER → 2024-10-01 | Outpatient (CLI) | payer OTHER, SELFPAY ==
--- NOTE | 2024-10-01 06:34 | EKG12_ITS ---
Test Reason : PREOP Blood Pressure : */* mmHG Vent. Rate : 80 BPM Atrial Rate : 80 BPM P-R Int : 162 ms QRS Dur : 74 ms QT Int : 400 ms P-R-T Axes : 81 -22 68 degrees QTcB Int : 461 ms Normal sinus rhythm Biatrial enlargement Abnormal ECG Confirmed by SUSANA MARTIN, HAWK ([id number]), magazine editor BOUBACAR HENSON ([id number]) on 10/01/2024 1:45:10 PM Referred By: Sathish Hernández Confirmed By: HAWK MEZA MD
--- NOTE | 2024-10-01 06:35 | CT_ITS ---
CT LEFT LOWER EXTREMITY WITH 3-D IMAGING CLINICAL INDICATION: OSTEOARTHRITIS LEFT KNEE. PRE-OP MARLIN KNEE TECHNIQUE: Axial CT images of the LEFT lower extremity was performed without IV contrast material. Coronal and sagittal reformats were provided. The protocol utilizes one or more of the following dose reduction techniques: automated exposure control, adjustment of mA and/or kV according to patient size,and/or use of iterative reconstruction technique. RADIATION DOSAGE (If Supplied By Facility): CTDIvol = ( 16.65 ) mGy, DLP = ( 1022.89 ) mGycm COMPARISON: No relevant prior comparison study available FINDINGS: Bones: Imaging of the left hip joint was obtained. The patient is status post left total hip replacement. There is good alignment. Imaging of the left knee was obtained. Marked degree of joint space narrowing of the medial compartment of the knee joint with a degenerative spur formation and subchondral cystic changes along the medial tibial plateau. Imaging of the ankle joint was obtained. No abnormality is seen. Soft Tissues: Small left knee joint effusion. The superficial soft tissues are unremarkable without evidence of edema, hematoma, or foreign body. CT/Extremity Lower without Contra IMPRESSION: Marked degree of joint space narrowing of the medial compartment the knee joint with subchondral cystic changes and degenerative spur formation along the medial tibial plateau. Small joint effusion. Status post left total hip replacement. There is good alignment. Electronically Signed: Petr Westbrook MD at 14:41 EST ,
[2024-10-01 06:51] LABS: Absolute Neutrophil Count 2.3 X10^3/uL (2.0-7.7); Basophil# 0.02 X10^3/uL; Basophil% 0.4 % (0-1); Eosinophils% 4.4 % (0-5); Hematocrit 43.7 % (37-47); Hemoglobin 14.1 g/dL (12.0-15.0); Lymphocyte % 33.1 % (19-41); Mean Corp Hgb Conc 32.3 g/dL (32-36); Mean Corpuscular Hgb 29.2 pg (27.0-32.0); Mean Corpuscular Volume 90.5 fL (81-99); Mean Platelet Vol. 8.9 fl (6.2-12.0); NRBC Flagged by Analyzer 0 % (0-5); Neutrophil % 50.9 % (47-70); Platelet Count 204 K/mm3 (150-450); RBC Distribution Width CV 13.3 % (11.6-14.6); RBC Distribution Width SD 44.2 fl (35.1-43.9); Red Blood Count 4.83 M/mm3 (4.2-5.4); White Blood Count 4.5 K/mm3 (4.4-11.0)
[2024-10-01 07:11] LABS: Albumin, Serum 3.7 g/dL (3.2-5.0); Anion Gap 1 (5-15); BUN 33 mg/dL (7-18); BUN/Creat Ratio 36.3 RATIO (10-20); Calcium,Total 9.3 mg/dL (8.5-10.1); Chloride 107 mmol/L (98-107); Creatinine, Serum 0.91 mg/dL (0.55-1.02); EST Glomerular Filtration Rate 66 mL/min (>60); Est Glom Filt Rate - Afr Amer 79 mL/min (>60); Glucose 75 mg/dL (74-106); Potassium 3.9 mmol/L (3.5-5.1); Sodium Level 140 mmol/L (136-145)
== END | disposition home or self-care (01) ==
PROVIDERS: PCP Family Medicine; Referring Provider Specialist; Visit Provider Specialist
DX: Z01.818 Encounter for other preprocedural examination (principal); M17.12 Unilateral primary osteoarthritis, left knee; S83.232D Complex tear of medial meniscus, current injury, left knee, subsequent encounter
CPT/HCPCS: 36415; 73700; 80048; 82040; 85025; 93005

== ENCOUNTER → 2024-10-17 | Outpatient (CLI) | payer OTHER, SELFPAY ==
--- NOTE | 2024-10-17 13:03 | ECHOD_ITS ---
Reason For Study: ABN EKG Procedure This was a 2D Doppler, Color Flow transthoracic echocardiogram. Exam performed in department. Left Ventricle Normal LV size. The left ventricular ejection fraction is 55 %. No regional wall motion abnormalities noted. Right Ventricle Normal RV size. Normal systolic function. Atria Normal left atrium. Normal right atrium. Mitral Valve Normal mitral valve. Tricuspid Valve Normal tricuspid valve. Mild tricuspid valve insufficiency. Pulmonary artery systolic pressure is 22 mmHg. Aortic Valve Trisinus/trileaflet aortic valve. Pulmonic Valve Normal pulmonic valve. Great Vessels Normal aortic root. The pulmonary artery is normal size. Inferior vena cava collapse with respiration. Pericardium/Pleural No pericardial effusion. MMode/2D Measurements & Calculations LVIDd: 3.9 cm IVSd: 0.96 cm LVOT diam: 1.7 cm LVIDs: 2.9 cm LVPWd: 0.97 cm LVOT area: 2.3 cm2 RVDd: 3.5 cm FS: 26.6 % Ao root diam: 3.3 cm LAV(MOD-sp4): 21.9 ml LVAd ap4: 21.3 cm2 LVLd ap4: 8.1 cm EDV(MOD-sp4): 48.0 ml EDV(sp4-el): 47.8 ml LVAs ap4: 13.9 cm2 LVLs ap4: 7.3 cm ESV(MOD-sp4): 21.8 ml ESV(sp4-el): 22.5 ml EF(MOD-sp4): 54.6 % EF(sp4-el): 53.0 % SV(MOD-sp4): 26.2 ml SV(sp4-el): 25.4 ml LA A4 area: 10.6 cm2 SI(MOD-sp4): 17.7 ml/m2 LA dimension(2D): 2.2 cm RA A4 area: 10.1 cm2 Time Measurements MV dec time: 0.18 sec Doppler Measurements & Calculations MV E max phillip: 58.1 cm/sec Lat Peak E' Phillip: 11.6 cm/sec Med Peak E' Phillip: 7.3 cm/sec MV A max phillip: 68.2 cm/sec E/E' lat: 5.0 E/E' med: 7.9 MV E/A: 0.85 MV V2 max: 71.2 cm/sec Ao V2 max: 98.4 cm/sec MV max P.0 mmHg MV dec slope: 330.2 cm/sec2 Ao max P.9 mmHg MV V2 mean: 45.3 cm/sec Ao V2 mean: 69.0 cm/sec MV mean P.94 mmHg Ao mean P.2 mmHg MV V2 VTI: 19.2 cm Ao V2 VTI: 19.9 cm AV (velocity ratio): 0.74 MVA(VTI): 1.7 cm2 MEJIA(I,D): 1.7 cm2 MEJIA(V,D): 1.7 cm2 LV V1 max: 72.3 cm/sec SV(LVOT): 33.2 ml PA V2 max: 79.2 cm/sec LV V1 max P.1 mmHg PA V2 mean: 61.3 cm/sec LV V1 mean P.3 mmHg LV V1 mean: 53.4 cm/sec LV V1 VTI: 14.6 cm TR max phillip: 219.3 cm/sec TR max P.2 mmHg ECHO/Echo Complete Interpretation Summary Normal LV size. The left ventricular ejection fraction is 55 %. Structurally normal valves. Ordering Physician: Berta Plaza Referring Physician: Berta Plaza Performed By: Shwetha Mcgill RCS
== END | disposition home or self-care (01) ==
LOC: CVS 13:02
PROVIDERS: PCP Family Medicine; Referring Provider Family Medicine; Visit Provider Family Medicine
DX: R94.31 Abnormal electrocardiogram [ECG] [EKG] (principal)
CPT/HCPCS: 93306

== ENCOUNTER → 2025-08-13 | Outpatient (CLI) | payer MEDICARE, OTHER, SELFPAY ==
[2025-08-13 13:00] LABS: AST(SGOT) 35 U/L (<=31); Alanine Aminotransfer ALT/SGPT 30 U/L (<=34); Albumin, Serum 4.4 g/dL (3.4-4.8); Alkaline Phosphatase 106 U/L (35-104); Anion Gap 11 (5-15); BUN 26 mg/dL (4-19); BUN/Creat Ratio 27.2 RATIO (10-20); Calcium,Total 9.5 mg/dL (7.6-11.0); Carbon Dioxide 25.8 mmol/L (21.0-32.0); Chloride 105 mmol/L (98-108); Cholesterol 174 mg/dL (<=200); Globulin 2.2 g/dL (2.2-4.2); Glucose 85 mg/dL (70-99); Low Density Lipoprotein Calc. 86 mg/dL; Potassium 4.1 mmol/L (3.3-5.1); Triglycerides 50 mg/dL; Very Low Density Lipoprotein 10 mg/dL (5-40); cholesterol:hdl ratio screen 2.24
== END | disposition home or self-care (01) ==
PROVIDERS: PCP Family Medicine; Visit Provider Family Medicine
DX: I10 Essential (primary) hypertension (principal); E78.5 Hyperlipidemia, unspecified
CPT/HCPCS: 36415; 80053; 80061